=== PATIENT | female | born 1985 | race African-American/Black ===

== ENCOUNTER 2022-08-15 09:54 | Outpatient (CLI) | payer BC, SELFPAY ==
--- NOTE | 2022-08-15 11:00 | NEURO_ITS ---
IMPRESSION: # Complains of numbness of left lower extremity. # Normal nerve conduction study. # Normal needle exam. # Clinical correlation recommended. Motor Nerve Conduction Lower Extremities Peroneal Nerve Conduction Velocity (m/sec) Terminal Latency (msec) Response Voltage(mV) Popliteal space-Ankle Ankle Extensor Dig Brevis Popliteal space Ankle Right 49 5.7 4 4 Left 47 5.5 2 2 Tibial Nerve Conduction Velocity (m/sec) Terminal Latency (msec) Response Voltage(mV) Popliteal space-Ankle Ankle-Extensor Dig Brevis Popliteal space Ankle Right 48 5.1 8 8 Left 44 5.5 7 9 F-waves Peroneal Nerve (ms) Tibial Nerve (ms) Right 54.0 55.6 Left 55.1 55.9 Sensory Nerve Conduction Lower Extremities Sural Nerve Stimulation Terminal Latency (msec) Ankle Response Voltage (uV) Ankle Response Velocity (m/sec) Right 3.6 3 44 Left 3.8 14 46 Superficial Peroneal Nerve Stimulation Terminal Latency (msec) Ankle Response Voltage (uV) Ankle Response Velocity (m/sec) Right 3.5 18 46 Left 3.5 13 46 Left Right Muscles Examined Fibrillation Fasciculation Scarcity Voltage Duration Left Right Left Right Left Right Left Right Left Right X X Ant Tibialis X X Gastroc X X Fibularis Long X X Flex Dig Long X X Ext Dig Brev Abd Hallucis Quadriceps Paraspinals MTDD
== END 2022-08-15 09:55 | disposition home or self-care (01) ==
LOC: ANHNEURO 09:56
PROVIDERS: PCP Internal Medicine Infectious Disease; Visit Provider Internal Medicine Infectious Disease
DX: R20.2 Paresthesia of skin (principal)
CPT/HCPCS: 95886; 95910

== ENCOUNTER 2023-03-01 10:40 | Outpatient (CLI) | payer BC, SELFPAY ==
--- NOTE | ~2023-03-01 | CT_ITS ---
EXAMINATION: CT diagnostic chest w con DATE: 03/01/2023 11:43 INDICATION: Mediastinal lymphadenopathy. TECHNIQUE: Computed tomography (CT) of the chest was performed with 75 cc Omnipaque 350 intravenous c ontrast. The dose-length product was 124.21 mGy-cm. Automated exposure control and iterative reconstr uction technique were employed. COMPARISON: None FINDINGS: No thoracic lymphadenopathy. Heart size normal. No significant pleural or pericardial effus ion. The upper abdomen is unremarkable. No significant vascular abnormality. No central pulmonary emb olism. No endobronchial lesions. No pneumothorax. No endobronchial lesions. 8 mm pleural-based nodule of the right upper lobe. IMPRESSION: 1. No acute cardiopulmonary disease. 2: Right upper lobe nodule measuring 8 mm. Follow-up low dose CT chest in 3 months recommended to ass ess stability. Reviewed, dictated and finalized at location A. IMPRESSION: 1. No acute cardiopulmonary disease. 2: Right upper lobe nodule measuring 8 mm. Follow-up low dose CT chest in 3 mon ths recommended to assess stability.
== END 2023-03-01 10:41 | disposition home or self-care (01) ==
PROVIDERS: PCP Internal Medicine Infectious Disease; Visit Provider Internal Medicine Infectious Disease
DX: R59.0 Localized enlarged lymph nodes (principal); R91.1 Solitary pulmonary nodule
CPT/HCPCS: 71260; Q9967